=== PATIENT | female | born 1985 | race Caucasian/White ===

== ENCOUNTER 2023-03-09 06:17 | Day surgery (SDC) | payer BC ==
[2023-03-05 15:40] LABS: BASOPHILS % (AUTO) 0.5 % (0-1); EOSINOPHILS # (AUTO) 0.1 X10'3 (0-0.9); EOSINOPHILS % (AUTO) 1.9 % (0-6); LYMPHOCYTES # (AUTO) 1.7 X10'3 (1.1-4.8); LYMPHOCYTES % (AUTO) 25.9 % (21-51); MEAN CORPUSCULAR HEMOGLOBIN 31.4 PG (27.0-31.0); MEAN CORPUSCULAR HGB CONC 34.2 g/dL (33.0-36.5); MEAN CORPUSCULAR VOLUME 91.8 FL (78-98); MEAN PLATELET VOLUME 8.2 FL (7.4-10.4); MONOCYTES # (AUTO) 0.5 X10'3 (0-0.9); MONOCYTES % (AUTO) 7.1 % (2-12); NEUTROPHILS # (AUTO) 4.3 X10'3 (1.8-7.7); NEUTROPHILS % (AUTO) 64.6 % (42-75); PRE OP HEMATOCRIT 39.3 % (35.0-45.0); PRE OP HEMOGLOBIN 13.5 g/dL (12.0-16.0); PRE OP PLATELET COUNT 246 X10'3 (140-440); RED BLOOD COUNT 4.28 X10'6 (4.20-5.60); RED CELL DISTRIBUTION WIDTH 13.3 % (11.5-14.5)
[2023-03-05 16:02] LABS: ALBUMIN 4.2 G/DL (3.4-5.0); BLOOD UREA NITROGEN 13 MG/DL (7-18); BUN/CREATININE RATIO 21.3 (10.0-20.0); CALCIUM 9.2 MG/DL (8.5-10.1); CHLORIDE 102 MMOL/L (99-107); CREATININE 0.61 MG/DL (0.40-0.90); PRE OP ANION GAP 7 (8-16); PRE OP BILIRUB, TOTAL 0.3 MG/DL (0.0-1.0); PRE OP GLUCOSE 87 MG/DL (70-104); PRE OP SODIUM 139 MMOL/L (135-145); TOTAL CARBON DIOXIDE 29.7 MMOL/L (24-32); eGFR > 90 ML/MIN
[2023-03-05 16:03] LABS: ALBUMIN/GLOBULIN RATIO 1.5 (1.1-1.5); ALKALINE PHOSPHATASE 46 IU/L (46-116); PRE OP ALT 30 U/L (30-65); PRE OP AST 17 U/L (10-37)
[2023-03-05 16:04] LABS: HCG SERUM QL NEGATIVE
[2023-03-05 16:09] LABS: PRE OP POTASSIUM 3.3 MMOL/L (3.4-5.1)
[~2023-03-09] VITALS: Ht 157.5 cm; Wt 50.6 kg
[~2023-03-09 06:17] MED LIST: MULT-1085 PO; famotidine 20mg tablet PO ONE; ringers solution, lacted 1,000 ML IV SCH
[2023-03-09 06:20] VITALS: BP 102/63
[2023-03-09] MEDS ORDERED: cefazolin 2gm/D5W 100mL 100 ML IV ONE (06:48)
[2023-03-09 07:14] LABS: ISTAT ANION GAP 12 (8-12); ISTAT BUN 16 mg/dL (7-18); ISTAT CL 103 mmol/L (99-107); ISTAT CREATININE 0.6 mg/dL (0.6-1.1); ISTAT GLUCOSE 84 mg/dL (70-104); ISTAT HGB 14.3 g/dl (12.0-16.0); ISTAT Hct 42 %PCV (35-45); ISTAT IONIZED CALCIUM 1.28 mmol/L (1.03-1.32); ISTAT K 3.7 mmol/L (3.5-5.1); ISTAT NA 140 mmol/L (135-145); ISTAT TOTAL CO2 25 mmol/L (24-32); ISTAT eGFR > 90 ML/MIN; POC BUN/CREATININE RATIO 26.7 (6.6-38.0)
[2023-03-09] MEDS ORDERED: BUPIVAcaine 0.25% w/Epi /PF 30ml vial ONE (08:23)
[2023-03-09] MEDS ORDERED: morphine 4 MG/ML inj SYRINge IV PRN (08:25)
[2023-03-09] MEDS ORDERED: labetalol 20mg/4ml (5mg/ml) syringe IV PRN (08:25)
[2023-03-09] MEDS ORDERED: hydrALAZINE 20mg/ml inj. IV PRN (08:25)
[2023-03-09] MEDS ORDERED: acetaminophen 1,000mg/100ml IV 100 ML IV PRN (08:25)
[2023-03-09] MEDS ORDERED: proCHLORperazine 10 MG/2 ml inj IV PRN (08:25)
[2023-03-09] MEDS ORDERED: ketorolac trometh. 30mg/ml inj. IV ONE (08:25)
[2023-03-09] MEDS ORDERED: ringers solution, lacted 1,000 ML IV SCH (08:25)
[2023-03-09] MEDS ORDERED: morphine 2 MG/ML inj. syringe IV PRN (08:25)
[2023-03-09] MEDS ORDERED: meperidine/PF 25mg/ml syringe IV PRN ×3 (08:25)
[2023-03-09] MEDS ORDERED: ondansetron/PF 4mg/2ml inj IV PRN (08:25)
[2023-03-09] MEDS ORDERED: fentaNYL/PF 50MCG/1 ML 2ML syringe ONE (08:42)
[2023-03-09] MEDS ORDERED: midazolam 1 mg/ML 2ml injection ONE (08:42)
[2023-03-09] MEDS ORDERED: LIDOcaine 2% (20mg/ml) 5ml vial ONE (09:05)
[2023-03-09] MEDS ORDERED: rocuronium 10mg/ml inj IV ONE (09:05)
[2023-03-09] MEDS ORDERED: propofol inj 20 ML IV ONE (09:05)
[2023-03-09] MEDS ORDERED: dexamethasone sod phosphate 4mg/ml inj. ONE (09:38)
[2023-03-09] MEDS ORDERED: ondansetron/PF 4mg/2ml inj ONE (09:38)
[2023-03-09] MEDS ORDERED: sugammadex 200mg/2ml injection IV ONE (09:45)
[2023-03-09] MEDS ORDERED: neostigmine methylsulfate 1 MG/ML 10ml vial ONE (09:45)
[2023-03-09] MEDS ORDERED: glycopyrrolate 0.2mg/ml inj ONE (09:45)
[2023-03-09 09:50] VITALS: BP 106/62
--- NOTE | 2023-03-09 09:50 | NUR ---
Received from OR via [facility], accompanied by Anesthesiologist DR. NAVA and report given by Anesthesiolgist. LEFT HAND 20G PIV WITH LR RUNNING. DENIES PAIN. ON 10L MASK O2. UMBILICUS CLEAN AND DRY. VSS.
[2023-03-09 10:00] VITALS: BP 113/69
[2023-03-09 10:10] VITALS: BP 104/65
[2023-03-09 10:20] VITALS: BP 107/68
--- NOTE | 2023-03-09 10:20 | NUR ---
PATIENT MEETS DISCHARGE CRITERIA. ALL BELONGINGS SENT WITH PATIENT AND DISCHARGE INSTRUCTIONS GIVEN. SENT HOME WITH FRIEND, TARAS.
== END 2023-03-09 10:20 | disposition home or self-care (01) ==
LOC: PAS 06:17
PROVIDERS: ATTEND Obstetrics & Gynecology
DX: Z30.2 Encounter for sterilization (principal); N92.0 Excessive and frequent menstruation with regular cycle; N94.6 Dysmenorrhea, unspecified; N80.202 Endometriosis of left fallopian tube, unspecified depth; G43.909 Migraine, unspecified, not intractable, without status migrainosus; Z88.1 Allergy status to other antibiotic agents; Z98.890 Other specified postprocedural states; Z79.899 Other long term (current) drug therapy
CPT/HCPCS: 36415; 58563; 58670; 80047; 80053; 84703; 85025; J1100; J2175; J2250; J2405; J2704; J2710; J3010; J3490; J7120; S0020; Z7506; Z7508; Z7512; A4355; A4618; A4649; A6258; A7000